=== PATIENT | male | born 1985 | race Caucasian/White ===

== ENCOUNTER → 2022-05-17 | Outpatient (CLI) | payer OTHER ==
--- NOTE | 2022-05-18 04:04 | MR ---
EXAMINATION TYPE: MR ankle LT wo con DATE OF EXAM: 05/17/2022 COMPARISON: None HISTORY: Pain FINDINGS: Multiplanar and multiecho imaging of the left ankle with no contrast. There is abnormal patchy increased signal on the T2 images in the superior talus. There is irregular fracture line extending through the body of the talus in the coronal plane. No displacement. Fracture line extends to the articular surface superiorly and inferiorly.. There is ankle joint effusion. The Achilles tendon is intact. Plantar fascia is intact. The medial and lateral flexor tendons are in tact. There is subcutaneous edema around the ankle. The collateral ligaments appear intact. IMPRESSION: Nondisplaced intra-articular fracture of the talus. Ankle joint effusion. No evidence of ligament or tendon tear. Subcutaneous edema.
== END | disposition home or self-care (01) ==
LOC: RADMRIMAIN 09:00
DX: S92.115A Nondisplaced fracture of neck of left talus, initial encounter for closed fracture (principal); M25.472 Effusion, left ankle

== ENCOUNTER → 2022-05-29 | Outpatient (CLI) | payer OTHER ==
--- NOTE | 2022-05-29 08:44 | CT ---
EXAMINATION TYPE: CT ankle LT wo con DATE OF EXAM: 05/29/2022 COMPARISON: MRI of left ankle 05/27/2022 HISTORY: Lt Talus Fracture CT DLP: 196.10 mGycm Automated exposure control for dose reduction was used. Contrast: None Technique: Axial images 2 mm thick sections reconstructed images in the coronal and sagittal plane. T hree-D reconstructed images performed separate computer by technologist are reviewed. FINDINGS: There is a comminuted fracture of the dome of the talus. The major fracture line is transverse lucenc y through the articular surface. Smaller fracture line extends anterior from this location in the mid portion. There may be a more subtle oblique fracture extending to the anterior lateral portion of t he talus to the inferior portion of the fracture line. Mild diastases of the fracture is present No additional fractures are identified. Boehler's angle is preserved. The calcaneus appears intact. S mall plantar calcaneal heel spur is present. Midfoot tarsal structures appear intact. Alignment appea rs preserved. IMPRESSION: 1. COMMINUTED FRACTURE TALAR DOME.
== END | disposition home or self-care (01) ==
LOC: RADCTMAIN 06:20
PROVIDERS: ATTEND Orthopaedic Surgery Sports Medicine
DX: S92.102A Unspecified fracture of left talus, initial encounter for closed fracture (principal); X58.XXXA Exposure to other specified factors, initial encounter

== ENCOUNTER 2022-06-05 13:16 | Day surgery (SDC) | payer OTHER ==
[2022-06-04 09:47] VITALS: BMI 26.4
[~2022-06-05 13:16] MED LIST: DEXAMETHASONE SOD PHOSPHATE 4 MG/ML 1 ML VIAL IV ONE; HYDROmorphone 0.5 MG/0.5 ML SYRINGE IVP PRN; LACTATED RINGERS 1,000 ML IV SCH; LIDOCAINE 1% (10MG/ML) FOR IV START INTRADERMA PRN; MIDAZOLAM 2 MG/2 ML VIAL IV PRN; ONDANSETRON 4 MG/2 ML VIAL IVP ONE
[2022-06-05 13:49] VITALS: RESP 16
[2022-06-05] MEDS ORDERED: fentaNYL (PF) 50 MCG/ML 2 ML AMP IV ONE (14:14)
[2022-06-05] MEDS ORDERED: fentaNYL (PF) 50 MCG/ML 2 ML AMP ONE (15:24)
[2022-06-05] MEDS ORDERED: PROPOFOL 10 MG/ML 20 ML VIAL IV ONE (15:24)
[2022-06-05] MEDS ORDERED: LIDOCAINE 2% INJ 20 MG/ML (2 ML VIAL) ONE (15:24)
[2022-06-05] MEDS ORDERED: DEXAMETHASONE SOD PHOSPHATE 10 MG/ML 1 ML VIAL ONE (15:24)
[2022-06-05] MEDS ORDERED: MIDAZOLAM 2 MG/2 ML VIAL ONE (15:24)
[2022-06-05] MEDS ORDERED: ROPIVACAINE 5 MG/ML 30 ML VIAL ONE (15:24)
[2022-06-05] MEDS ORDERED: ceFAZolin 1,000 MG in SODIUM CHLORIDE 0.9% 1,000 ML IRRIGATION ONE (15:52)
--- NOTE | 2022-06-05 15:54 | P.ANPRN ---
Procedure Note - Anesthesia - Nerve Block Performed Left Adductor Canal Single Time Out Performed: Yes Date of Procedure: 06/05/22 Procedure Start Time: 14:14 Procedure Stop Time: 14:20 Location of Patient: PreOp Indication: Acute Post-Operative Pain, Requested by Surgeon Sedation Type: Sedate with meaningful contact maintained Preparation: Sterile Prep Position: Supine Catheter: None Needle Types: Pajunk Needle Gauge: 20 Ultrasound used to visualize needle placement: Yes Ultrasound used to observe medication spread: Yes Injectate: 0.5% Ropivacaine (see comment for volume) (15 ml + decadron 5 mg) Blood Aspirated: No Pain Paresthesia on Injection Noted: No Resistance on Injection: Normal Image Stored and Saved: Yes Events: Uneventful and Well Tolerated Left Popliteal Single Time Out Performed: Yes Date of Procedure: 06/05/22 Procedure Start Time: 14:21 Procedure Stop Time: 14: Location of Patient: PreOp Indication: Acute Post-Operative Pain, Requested by Surgeon Sedation Type: Sedate with meaningful contact maintained Preparation: Sterile Prep Position: Right Lateral Catheter: None Needle Types: Pajunk Needle Gauge: 20 Ultrasound used to visualize needle placement: Yes Ultrasound used to observe medication spread: Yes Injectate: 0.5% Ropivacaine (see comment for volume) (15 ml + decadron 5 mg) Blood Aspirated: No Pain Paresthesia on Injection Noted: No Resistance on Injection: Normal Image Stored and Saved: Yes Events: Uneventful and Well Tolerated
[2022-06-05 16:37] VITALS: TEMP 96.8
--- NOTE | 2022-06-05 16:37 | P.OP ---
Date of Procedure: 06/05/22 Preoperative Diagnosis: Displaced fracture of talar body left ankle Postoperative Diagnosis: Same Procedure(s) Performed: Percutaneous fixation left talar body fracture Implants: Arthrex 4.0mm fully threaded headless screws 2 Arthrex 3.5mm fully threaded headless screw 1 Anesthesia: GETA Surgeon: Da Black Estimated Blood Loss (ml): 2 Pathology: none sent Condition: stable Disposition: PACU Description of Procedure: Prior to the patient being brought to the operating room, anesthesia administered a nerve block on the left lower extremity. The patient was then brought into the operating room and placed on table supine position. Timeout was taken to confirm correct patient identifiers, correct laterality of surgery, and correct procedure. When the staff in the OR was in agreement with the timeout, the patient was induced and placed under general anesthesia. A well- padded tourniquet was placed on the left calf, a bump underneath the left hip to internally rotate the left leg, and then the left leg was prepped and draped in the usual manner. The leg was exsanguinated and the tourniquet inflated to 250 motors mercury. Under direct fluoroscopic visualization, the first screw to be placed was the anterior medial screw. A guidewire was placed over the proposed entry point and then adjusted until it was aligned in the AP and lateral views. The guidewire was then advanced into the talus avoiding the articular surface anteriorly. The wires was advanced across the fracture line. Live fluoroscopy was used to check all planes that the wire was not close to the ankle or subtalar joints and that it was indeed in line with the fracture. Once the position of the pin was satisfactory, a small stab incision was made to accommodate the drill bit. Blunt dissection was formed down to the level the bone. A tissue protector was inserted over the wire and then the appropriate size drill was used to drill just past the fracture line. A 4.0 mm fully threaded headless screw was inserted across the wire and advanced until the proximal threads engaged the cortical bone on the anterior surface of the talus. Fluoroscopic imaging in AP, lateral and oblique views showed the screw in proper positioning. The next screw placed was the anterior lateral screw. The guidewire was placed at the talar body/neck interface. The wire was adjusted so that it was crossing the fracture line and avoiding the subtalar and ankle joints. The wire was advanced part way and then checked on lateral and AP views. When that was satisfactory the wire was advanced past the fracture line. Final fluoroscopic imaging showed that the wire was properly positioned. A small stab incision was made through the skin at the entry point of the wire. Blunt dissection was performed down to the bone and then a tissue protector was placed over the wire to protect the surrounding soft tissues. The drill was inserted over the wire and advanced to just past the fracture line. Another 4.0 mm screw was placed over the guidewire and advanced until the proximal threads engaged the cortex of the talus. Fluoroscopic imaging confirmed proper positioning of the screw and also show that did not enter the ankle or subtalar joints. The next screw was the lateral to medial screw in the anterior body of the talus. With the ankle slightly plantar flexed, the guidewire was placed just anterior to lateral malleolus and near the distal tip to avoid the articular surface. The wire was advanced on AP view part way. And then the fluoroscopic view was switched the lateral to make sure that the wire was not protruding through the subtalar joint and avoiding the 2 other screws. Once the trajectory was satisfactory, the wire was fully advanced to the medial cortex. A small stab incision was made at the entry point of the wire and blunt dissection performed of the soft tissue down to the bone. Drilling was done just past the fracture line which was at the midline of the body. Then a 3.5 mm fully threaded headless screw was inserted across the g uidewire was advanced until the proximal threads engaged the lateral cortex of the talus. Final fluoroscopic imaging showed proper placement of all 3 screws in the AP, lateral, and oblique views. All guidewires were removed and then the wound is thoroughly irrigated with normal saline. The ankle and subtalar joint taken through range of motion under live fluoroscopy. Was no impingement of the screws and the joint and no crepitus noted during the testing. 3-0 nylon was used to close the 3 incisions. Adaptic and a dry dressing applied to the left foot and ankle. The tourniquet was released and capillary refill return to all digits of the left foot. The patient was placed in a below-knee fracture boot with ankle neutral position. Anesthesia was reversed and the patient was taken recovery with vital signs stable.
--- NOTE | 2022-06-05 16:41 | XR ---
Fluoroscopy INDICATION: Pain FINDINGS: Fluoroscopy time: 58 seconds. Images obtained: 4. IMPRESSIONS: 1. Documentation of fluoroscopy.
[2022-06-05 17:47] VITALS: BP 122/85; PULSE 66
--- NOTE | 2022-06-06 08:34 | FL ---
Fluoroscopy History: ORIF LT ANKLE ORIF left talus. 58 sec fl. 4 images sent to XR order.
== END 2022-06-05 18:06 | disposition home or self-care (01) ==
LOC: OR 13:16
PROVIDERS: ATTEND Podiatrist
DX: S92.122A Displaced fracture of body of left talus, initial encounter for closed fracture (principal); G89.18 Other acute postprocedural pain; Z83.3 Family history of diabetes mellitus; Z82.49 Family history of ischemic heart disease and other diseases of the circulatory system; Z83.2 Family history of diseases of the blood and blood-forming organs and certain disorders involving the immune mechanism; Z86.59 Personal history of other mental and behavioral disorders; Z79.899 Other long term (current) drug therapy; Z88.0 Allergy status to penicillin; W11.XXXA Fall on and from ladder, initial encounter
CPT/HCPCS: 64447; 64445; 76942; 73600; 28436; C1713; J2250; J1100 ×2; J0690 ×2; J2405; J3010; J2795; J2704; J2001